=== PATIENT | female | born 1950 | race Caucasian/White ===

== ENCOUNTER 2024-12-14 14:16 | Emergency (ER) | payer OTHER, SELFPAY ==
[2024-12-14] VITALS (14 sets, daily range): BP systolic 117–154; BP diastolic 60–70; PULSE 71–87; RESP 16–22; TEMP 36.6; O2SAT 96–100; BMI 45.6
--- NOTE | 2024-12-14 14:58 | DI.RAD.S_ITS ---
PROCEDURE: XR CHEST 1V INDICATIONS: chest pain TECHNIQUE: One view of the chest was acquired. COMPARISON: None. FINDINGS: Surgical changes and devices: None. Lungs and pleura: Lungs are clear. No pleural effusions or pneumothorax. Mediastinum: Mediastinal contours appear normal. Heart size is enlarged. Bones and chest wall: No suspicious bony lesions. Overlying soft tissues appear unremarkable. IMPRESSION: No acute pulmonary process. Dictated by: Hilda Hastings M.D. on 12/14/2024 at 15:59 Approved by: Hilda Hastings M.D. on 12/14/2024 at 15:59
--- NOTE | 2024-12-14 15:17 | EKG_ITS ---
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
--- NOTE | 2024-12-14 15:25 | ED_ITS ---
HPI - Abdominal Pain General Chief Complaint: Weakness Stated Complaint: Diarrhea, Weakness Time Seen by Provider: 12/14/24 15:00 Source: patient and family Mode of arrival: EMS History of Present Illness HPI narrative: 74-year-old female presenting for nausea vomiting diarrhea abdominal cramping started few hours prior to arrival, state that the symptoms resolved after she moved her bowels, states that she has not had any recent known sick contacts no recent travel not on any recent antibiotics. Patient states that her symptoms have improved after having another episode of diarrhea here. Denies any bright red blood per rectum denies any other symptoms such as headache visual disturbances chest pain shortness of breath fever chills or any other GI/ symptoms at this time. Related Data Previous Rx's Medication Instructions Recorded amoxicillin 875 mg-potassium 1 tab PO BID 1 week #14 tabs 12/14/24 clavulanate 125 mg tablet Review of Systems Review of Systems Narrative: General: Denies fever, chills, weight loss HEENT: Denies headache, eye drainage, eye irritation, head trauma, sore throat, voice change Cardiovascular: Denies any chest pain, palpitations, shortness of breath, tachycardia Respiratory: Denies any shortness of breath, cough, wheeze, stridor GI/: Positive abdominal pain, nausea, vomiting, diarrhea, denies bright red blood per rectum, melanotic stools, urinary frequency, urinary retention, dysuria, hematuria MSK: Denies any joint pain, muscle pains, swelling Skin: Denies any rashes, lesions, discoloration Neuro: Denies any headache, lightheadedness, dizziness, fainting, weakness Psych: Denies SI/HI Exam Narrative Exam Narrative: General: Cooperative, comfortable, well-developed, not in acute distress HEENT: Normocephalic, atraumatic, PERRLA, normal sclera, eyelids normal, Neck: Active full range of motion, atraumatic Chest: Normal to inspection, negative crepitus, no overlying erythema ecchymosis Respiratory: Normal respiratory effort, not in acute respiratory distress, clear to auscultation bilaterally negative cough, wheeze, tachypnea, rhonchi, rales Cardiology: Regular rate rhythm negative gallop, murmur, rubs GI/: Normal to inspection, soft, nonrigid, no tenderness to palpation, exam deferred MSK: Full range of active range of motion of all 4 extremities, atraumatic Skin: No rashes lesions noted Neuro: Alert awake oriented x3, moves all 4 extremities spontaneously, cranial nerves intact, able to answer all questions appropriately follows commands appropriately Psych: Cooperative, negative suicidal or homicidal ideations Initial Vital Signs Initial Vital Signs: Vital Signs Blood Pressure 125/61 12/14/24 14:27 Course Orders Ordered: ED Orders 12/14/24 14:58 XR chest 1V Stat EKG-12 Lead Stat 12/14/24 15:14 GI Panel (Film Array) Stat 12/14/24 15:22 Complete Blood Count AUTO DIFF Stat Comprehensive Metabolic Panel Stat Lipase Stat Magnesium Stat NT-proBNP (BNP-Adult 18+) Stat PTT Partial Thromboplastin [place] Stat Prothrombin Time INR Stat Troponin & CK Cardiac Panel Stat 12/14/24 15:25 CT abdomen pelvis w con Stat 12/14/24 16:25 Ictotest Urine Stat 12/14/24 16:28 Urine Microscopic Stat Discontinued Medications Sodium Chloride (Normal Saline 0.9%) 1,000 mls @ 1,000 mls/hr IV BOLUS ONE Stop: 12/14/24 16:24 Last Admin: 12/14/24 16:05 Dose: 1,000 mls/hr Documented By: ABIGAIL Ketorolac Tromethamine (Ketorolac 30 Mg/Ml Vial) 15 mg IM NOW ONE Stop: 12/14/24 15:26 Last Admin: 12/14/24 16:04 Dose: 15 mg Documented By: ABIGAIL Vital Signs Vital signs: Vital Signs - 8 hr 12/14/24 14:27 12/14/24 14:30 12/14/24 14:36 Temperature Pulse Rate 80 Respiratory Rate Blood Pressure 125/61 123/70 Pulse Oximetry 96 Oxygen Delivery Method 12/14/24 14:42 12/14/24 14:45 12/14/24 14:45 Temperature 97.9 F Pulse Rate 74 76 Respiratory Rate 18 19 Blood Pressure 117/70 117/70 Pulse Oximetry 98 100 Oxygen Delivery Method Room Air 12/14/24 15:00 12/14/24 15:30 12/14/24 15:37 Temperature Pulse Rate 81 72 Respiratory Rate 22 17 Blood Pressure 134/63 Pulse Oximetry 99 Oxygen Delivery Method 12/14/24 15:37 12/14/24 16:00 12/14/24 16:00 Temperature Pulse Rate 71 71 Respiratory Rate 20 16 Blood Pressure 144/65 H Pulse Oximetry 99 99 Oxygen Delivery Method 12/14/24 16:35 Temperature Pulse Rate 87 Respiratory Rate 22 Blood Pressure Pulse Oximetry 98 Oxygen Delivery Method MDM - Abdominal Pain Differential Diagnosis Differential diagnosis: Likely abdominal pain, acute appendicitis, constipation, diverticulitis, gastroenteritis and other (Electrolyte abnormality, urinary tract infection, C diff) Lab Data 12/14/24 15:22 12/14/24 15:22 Labs: Lab Results 12/14/24 12/14/24 12/14/24 Range/Units 15:14 15:22 16:25 WBC 13.9 H (4.5-11.0) X10^3/uL RBC 4.57 (4.0-5.2) X10^6/uL Hgb 13.3 (12.0-16.0) g/dL Hct 39.6 (36-46) % MCV 86.6 (80-100) fL MCH 29.1 (26-34) PG MCHC 33.6 (30-36) % RDW 14.5 (11.6-14.8) % Plt Count 290 (150-400) X10^3/uL Neut % (Auto) 86.3 H (50-75) % Lymph % (Auto) 6.8 L (25-40) % [place] % (Auto) 5.2 (3-14) % Eos % (Auto) 1.3 L (2-4) % Baso % (Auto) 0.4 (0-2) % Neut # (Auto) 68561 H (3707-8882) /uL Lymph # (Auto) 900 L (3832-9587) /uL [place] # (Auto) 700 (0-900) /uL Eos # (Auto) 200 (0-450) /uL Baso # (Auto) 100 (0-100) /uL PT 11.1 (9.4-12.5) SECONDS INR 1.0 (0.9-1.3) APTT 35 (25.1-36.5) SECONDS Sodium 140 (137-145) mmol/L Potassium 3.2 L (3.4-5.1) mmol/L Chloride 103 (98-107) mmol/L Carbon Dioxide 28 (22-32) mmol/L BUN 29 H (7-17) mg/dL Creatinine 1.18 H (0.52-1.04) mg/dL Estimated GFR 48 L (>60) mL/min BUN/Creatinine Ratio 24.6 H (6-22) Glucose 136 H (80-110) mg/dL Calcium 9.7 (8.4-10.2) mg/dL Magnesium 1.7 (1.6-2.3) mg/dL Total Bilirubin 0.5 (0.2-1.3) mg/dL AST 29 (14-36) IU/L ALT 25 (<35) IU/L Alkaline Phosphatase 111 (38-126) U/L Total Creatine Kinase 59 (30-135) U/L Troponin I < 0.012 (0.01-0.034) ng/mL NT-Pro-B Natriuret Pep 26 (<450) pg/mL Total Protein 7.4 (6.3-8.2) g/dL Albumin 4.6 (3.5-5.0) g/dL Globulin 2.8 (1.7-4.1) g/dL Albumin/Globulin Ratio 1.6 (1.0-2.8) Lipase 210 (23-300) U/L Ur Bilirubin Confirm Negative (Negative) Stl C. cayetanensis PCR Not detected (Not Detect) Stool Rotavirus (PCR) Not detected (Not Detect) Stool Adenovirus (PCR) Not detected (Not Detect) Stool Astrovirus (PCR) Not detected (Not Detect) Stool Cryptosporidium PCR Not detected (Not Detect) Stl E.coli Shiga Tox PCR Not detected (Not Detect) St Sh/Enteroin Ecoli PCR Not detected (Not Detect) Stl Enterotoxigenic E PCR Not detected (Not Detect) Stool EPEC (PCR) Not detected (Not Detect) Stl E. histolytica PCR Not detected (Not Detect) Stool Giardia Lamblia PCR Not detected (Not Detect) Stool Sapovirus (PCR) Not detected (Not Detect) Stl P. shigelloides PCR Not detected (Not Detect) St Y.enterocolitica PCR Not detected (Not Detect) Stool Vibrio (PCR) Not detected (Not Detect) Stl Vibrio cholerae PCR Not detected (Not Detect) Stl Enteroaggr Ecoli PCR Not detected (Not Detect) Stl Norovirus GI/GII PCR Not detected (Not Detect) Campylobacter (PCR) Not detected (Not Detect) C. difficile Tox (PCR) Not detected (Not Detect) Salmonella (PCR) Not detected (Not Detect) Point of care testing: Urine Dip Bedside Urine Glucose Negative Bedside Urine Bilirubin + 1 Bedside Urine Ketone +/- 5 Urine Specific [place] 1.020 Bedside Urine Occult Blood - Negative Bedside Urine pH 6.0 Bedside Urine Protein +/- 15 Bedside Urine Urobilinogen - Negative Bedside Urine Nitrite - Negative Bedside Urine Leukocytes +/- [address] scan - abdomen/pelvis: Radiologist's Impression: [address] [address] [address] Scan Report Signed Patient: Miri Nguyen MR#: [id number] : 1950 Acct:[id number] Age/Sex: 74 / F Date of Service: 12/14/24 Loc: ED Accession Number: [id number] Procedure: CT abdomen pelvis w con Ordering Provider: Adolph Liang D.O. PROCEDURE: CT ABDOMEN PELVIS W CON INDICATIONS: diffuse abd pain TECHNIQUE: After the administration of intravenous contrast, axial sections acquired from the lung bases to the pubic symphysis. Coronal and sagittal reformats were performed. For radiation dose reduction, the following was used: automated exposure control, adjustment of mA and/or kV according to patient size. COMPARISON: None. FINDINGS: Lower thorax: The lung bases are clear. Heart size normal. No hiatal hernia. Liver: The liver is diffusely decreased in attenuation without focal mass lesion. Biliary system: Cholecystectomy. No intra or extrahepatic bile duct dilation. Pancreas: Unremarkable without mass or inflammation evident. Spleen: Normal in size and density. Adrenals: Normal morphology and density. Reproductive system: Unremarkable as visualized. Urinary system: Normal renal size and attenuation. No renal calculi, hydronephrosis, or solid mass present. Urinary bladder unremarkable. Gastrointestinal system: The bowel is unremarkable without evidence of bowel obstruction or inflammation. The stomach appears unremarkable. Multiple diverticula arise from the sigmoid colon. Suggestion of mild pericolonic edema noted in the proximal sigmoid. No obstruction. Appendix: No findings to suggest acute appendicitis. Peritoneal spaces: No mesenteric or retroperitoneal adenopathy. No free air. No free fluid. Vasculature: The IVC, aorta and iliac vasculature are unremarkable. Abdominal wall: Abdominal wall intact without evidence of ventral or inguinal hernias. Musculoskeletal: Normal bone mineralization. Degenerative disc disease and arthropathy noted in lower lumbar spine. No acute fractures. IMPRESSION: Colonic diverticulosis. Suggestion of mild pericolonic inflammatory change in the proximal sigmoid could reflect early diverticulitis in the proper clinical setting. No abscess, obstruction or free air. Chest x-ray: Radiologist's Impression: [address] [address] XRay Report Signed Patient: Miri Nguyen MR#: [id number] : 1950 Acct:[id number] Age/Sex: 74 / F Date of Service: 12/14/24 Loc: ED Accession Number: [id number] Procedure: XR chest 1V Ordering Provider: Adolph Liang D.O. PROCEDURE: XR CHEST 1V INDICATIONS: chest pain TECHNIQUE: One view of the chest was acquired. COMPARISON: None. FINDINGS: Surgical changes and devices: None. Lungs and pleura: Lungs are clear. No pleural effusions or pneumothorax. Mediastinum: Mediastinal contours appear normal. Heart size is enlarged. Bones and chest wall: No suspicious bony lesions. Overlying soft tissues appear unremarkable. IMPRESSION: No acute pulmonary process. ECG Data Interpretation: EKG interpreted by ED physician sinus 73 beats per minute QTC 449, normal axis nonspecific ST changes no STEMI MDM Narrative Medical decision making narrative: 74-year-old female past medical history diverticulitis comes into the ED from home via EMS for evaluation of abdominal pain nausea vomiting diarrhea as well as weakness patient states that her symptoms started a few hours prior to arrival, patient states improved symptoms after moving her bowels here. Denies any bright red blood per rectum, CT scan showing early diverticulitis, urinalysis not consistent with an acute urinary tract infection mild leukocytosis at 13.1, given patient with leukocytosis CT scan showing early diverticulitis patient will be started on antibiotics instructed follow up with primary care and GI in outpatient setting she verbalized understanding of this, strict return precautions given she verbalized understanding of this and agrees to being discharged home with outpatient follow up. Discharge Plan Departure Patient Disposition: Home Clinical Impression: Diverticulitis Instructions: DI for Diverticulitis Activity Restrictions/Additional Instructions: Please follow up with GI and PCP in outpatient setting Please read the discharge instructions sheet carefully and bring all papers to all doctor follow-up visits, as it may contain information that your doctor may want to see. Disease processes change and evolve, if your symptoms worsen or if you develop any new symptoms that are concerning to you please return for evaluation. Your evaluation today does not show any evidence of any life- threatening/serious illnesses requiring admission to the hospital or surgery. Please follow-up with your doctor for re-evaluation in approximately 1 day. Seek immediate medical attention for any worrisome symptoms. *If you do not have a primary care provider please contact the [facility] Resource line at [phone]. They will ask some questions about your medical history and help get you set up with a doctor in the community. Prescriptions: New amoxicillin-pot clavulanate 875-125 mg tablet 1 tab PO BID 7 Days Qty: 14 0RF Referrals: Miscellaneous,Doctor, [Primary Care Provider] - Stand Alone Forms: Patient Portal/API/Survey
[2024-12-14 15:32] LABS: Add Manual Diff / Slide Review NO; Basophils Absolute Auto 100 /uL (0-100); Basophils Percent Auto 0.4 % (0-2); Eosinophils Absolute Auto 200 /uL (0-450); Eosinophils Percent Auto 1.3 % (2-4); Hematocrit 39.6 % (36-46); Hemoglobin 13.3 g/dL (12.0-16.0); Lymphocytes Absolute Auto 900 /uL (1100-4500); Lymphocytes Percent Auto 6.8 % (25-40); Mean Corpuscular HGB Conc 33.6 % (30-36); Mean Corpuscular Hemoglobin 29.1 PG (26-34); Mean Corpuscular Volume 86.6 fL (80-100); Monocytes Absolute Auto 700 /uL (0-900); Monocytes Percent Auto 5.2 % (3-14); Neutrophils Absolute Auto 12000 /uL (1500-7000); Neutrophils Percent Auto 86.3 % (50-75); Platelet Count 290 X10^3/uL (150-400); Red Blood Cell Count 4.57 X10^6/uL (4.0-5.2); Red Cell Distribution Width 14.5 % (11.6-14.8); White Blood Cell Count 13.9 X10^3/uL (4.5-11.0)
[2024-12-14 15:37] LABS: Prothrombin Time 11.1 SECONDS (9.4-12.5)
[2024-12-14 15:40] LABS: PTT Partial Thromboplastin Tim 35 SECONDS (25.1-36.5)
[2024-12-14 15:42] LABS: Alanine Aminotransferase 25 IU/L (<35); Albumin 4.6 g/dL (3.5-5.0); Albumin Globulin Ratio 1.6 (1.0-2.8); Alkaline Phosphatase 111 U/L (38-126); Aspartate Aminotransferase 29 IU/L (14-36); BUN Creatinine Ratio 24.6 (6-22); Bilirubin Total 0.5 mg/dL (0.2-1.3); Blood Urea Nitrogen 29 mg/dL (7-17); Calcium 9.7 mg/dL (8.4-10.2); Carbon Dioxide 28 mmol/L (22-32); Chloride 103 mmol/L (98-107); Creatine Kinase 59 U/L (30-135); Estimated Glomerular Filt Rate 48 mL/min (>60); Globulin 2.8 g/dL (1.7-4.1); Glucose 136 mg/dL (80-110); HEMOLYSIS < 15 (0-50); Lipase 210 U/L (23-300); Magnesium 1.7 mg/dL (1.6-2.3); Potassium 3.2 mmol/L (3.4-5.1); Sodium 140 mmol/L (137-145); Total Protein 7.4 g/dL (6.3-8.2)
[2024-12-14 15:53] LABS: NT-proBNP (BNP-Adult 18+) 26 pg/mL (<450); Troponin I < 0.012 ng/mL (0.01-0.034)
[2024-12-14] MEDS: KETOROLAC 30 MG/ML VIAL 15 MG IM (16:04)
[2024-12-14] MEDS: SODIUM CHLORIDE 0.9% 1,000 ML 1000 ML IV (16:05)
[2024-12-14 16:48] LABS: Ictotest Urine Negative (Negative)
[2024-12-14 17:04] LABS: Adenovirus F 40/41 Not Detected (Not Detect); Astrovirus Not Detected (Not Detect); Campylobacter Not Detected (Not Detect); Clostridium difficile toxin AB Not Detected (Not Detect); Cryptosporidium Not Detected (Not Detect); Cyclospora cayetanensis Not Detected (Not Detect); Entamoeba histolytica Not Detected (Not Detect); Enteroaggregative E.coli Not Detected (Not Detect); Enteropathogenic E.coli Not Detected (Not Detect); Enterotoxigenic E.coli It/st Not Detected (Not Detect); Giardia lamblia Not Detected (Not Detect); Norovirus GI/GII Not Detected (Not Detect); Plesiomonsa shigelloides Not Detected (Not Detect); Rotavirus A Not Detected (Not Detect); Salmonella Not Detected (Not Detect); Sapovirus Not Detected (Not Detect); Shiga-like toxin-prod E.coli Not Detected (Not Detect); Shigella/Enteroinvasive E.coli Not Detected (Not Detect); Vibrio Not Detected (Not Detect); Vibrio cholerae Not Detected (Not Detect); Yersinia enterocolitica Not Detected (Not Detect)
[2024-12-14] MEDS: AMOXICILLIN/CLAV 875/125 MG 1 TAB PO (18:19)
== END 2024-12-14 18:20 | disposition home or self-care (01) ==
PROVIDERS: Emergency Provider Student in an Organized Health Care Education/Training Program
DX: K57.92 Diverticulitis of intestine, part unspecified, without perforation or abscess without bleeding (principal); R19.7 Diarrhea, unspecified; R10.9 Unspecified abdominal pain; R07.9 Chest pain, unspecified
CPT/HCPCS: 36415; 71045; 74177; 80053; 81003; 82550; 83690; 83735; 83880; 84484; 85025; 85610; 85730; 87507; 93005; 96360; 96361; 96372; 99284; J1885; Q9967